=== PATIENT | male | born 1985 | race Caucasian/White ===

== ENCOUNTER 2016-05-23 13:50 | Emergency (ER) | payer OTHER ==
--- NOTE | 2016-05-23 13:56 | EDPHY ---
H & P Time Seen by Provider: 05/23/16 13:56 HPI/ROS: CHIEF COMPLAINT: Right shoulder injury HISTORY OF PRESENT ILLNESS: Fell snowboarding 2 hours ago landing on the right shoulder. Pain which is worse with movement of the shoulder. REVIEW OF SYSTEMS: No weakness or numbness in the right hand and no other injuries PAST MEDICAL HISTORY: Negative Social history: Visiting from [place] General Appearance: Alert and conversant, cooperative. No posterior neck tenderness in the midline. Swelling and tenderness on the distal clavicle over the AC joint. No skin tenting. Remainder of the shoulder humerus elbow forearm wrist and hand is nontender and normal. Normal right radial pulse and normal motor and sensory in the hand. Emergency Department course/MDM: Vicodin 1 p. o., x-ray of the right shoulder, orthopedic referral. X-rays reviewed with the patient. Constitutional: Initial Vital Signs Temperature (C) 36.5 C 05/23/16 13:57 Heart Rate 77 05/23/16 13:57 Respiratory Rate 16 05/23/16 13:57 Blood Pressure 121/74 H 05/23/16 13:57 O2 Sat (%) 99 05/23/16 13:57 O2 Delivery Mode Room Air Allergies/Adverse Reactions: cefaclor [From [facility] [place]] Allergy (Verified 05/23/16 13:56) Home Medications: Medication Instructions Recorded Hydrocodone/APAP 5/325 [[place] 1 - 2 tab PO Q4-6PRN PRN #11 tab 05/23/16 5/325] MDM/Departure - MDM Diagnostics: X-ray reviewed personally by myself shows third-degree AC separation on the right. No fracture. Medications Given: Discontinued Medications Acetaminophen/Hydrocodone Bitart ([place] 5/325) 1 tab PO EDNOW ONE Stop: 05/23/16 14:08 Last Admin: 05/23/16 14:13 Dose: 1 tab - Depart Disposition: Home, Routine, Self-Care Clinical Impression: Shoulder separation Condition: Good Instructions: Acromioclavicular Separation (ED) Additional Instructions: Limited activity. Sling for comfort. Please follow up with an orthopedic surgeon in the next week when you return home to [place]. Bring the computer disc with the x-rays on it to your follow-up appointment. Prescriptions: Hydrocodone/APAP 5/325 [[place] 5/325] 1 - 2 tab PO Q4-6PRN PRN #11 tab PRN Reason: For Pain Referrals: Suraj Brush MD [Medical Doctor] - As per Instructions
[2016-05-23 14:00] VITALS: BP 121/74; PULSE 77; RESP 16; TEMP 97.7; O2SAT 99
[2016-05-23] MEDS ORDERED: HYDROCODONE/APAP 5/325 TAB PO ONE (14:07)
--- NOTE | 2016-05-23 14:38 | DX ---
Right Shoulder, 3 Views HISTORY: Right shoulder pain after fall snowboarding. Pain at AC joint. FINDINGS: No evidence for acute fracture or dislocation. There is elevation of the distal right clavi tresa in relation to the acromion with widening of the coracoclavicular distance. Glenohumeral articula tion is unremarkable. IMPRESSION: Grade 3 AC joint separation.
== END 2016-05-23 14:49 | disposition home or self-care (01) ==
DX: S43.101A Unspecified dislocation of right acromioclavicular joint, initial encounter (principal); V00.311A Fall from snowboard, initial encounter; Y99.8 Other external cause status; Y93.23 Activity, snow (alpine) (downhill) skiing, snowboarding, sledding, tobogganing and snow tubing
CPT/HCPCS: A4565